=== PATIENT | male | born 1985 ===

== ENCOUNTER 2017-06-21 10:05 | Day surgery (SDC) | payer MEDICAID ==
[2017-06-21] MEDS ORDERED: LR 1,000 ML IV ONE (10:32)
[2017-06-21] MEDS ORDERED: LIDOCAINE 1% 2 ML INJ ID PRN (10:32)
[2017-06-21] MEDS ORDERED: LIDOCAINE 1% 2 ML INJ ONE (10:33)
--- NOTE | 2017-06-21 12:28 | PDGENHP ---
History & Physical Chief Complaint: hx colon cancer History of Present Illness: hx colon cnacer Relevant Physical Exam: nad Cardiorespiratory Assessment: ctab. rrr
--- NOTE | 2017-06-21 13:13 | PDANEPAE ---
ANE History of Present Illness Colonoscope ANE Past Medical History - Cardiovascular History Hx Hypertension: No Hx Arrhythmias: No Hx Chest Pain: No Hx Coronary Artery / Peripheral Vascular Disease: No Hx CHF / Valvular Disease: No Hx Palpitations: No - Pulmonary History Hx COPD: No Hx Asthma/Reactive Airway Disease: No Hx Recent Upper Respiratory Infection: No Hx Oxygen in Use at Home: No Hx Sleep Apnea: No Sleep Apnea Screening Result - Last Documented: Negative - Neurologic History Hx Cerebrovascular Accident: No Hx Seizures: No Hx Dementia: No - Endocrine History Hx Diabetes: No Hypothyroid: No Hyperthyroid: No - Renal History Hx Renal Disorders: No - Liver History Hx Hepatic Disorders: No Hepatic History Comment: ELEV LIVER ENZYMES - Neurological & Psychiatric Hx Hx Neurological and Psychiatric Disorders: No - Cancer History Hx Cancer: Yes Cancer History Comment: COLON CA - Congenital Disorder History Hx Congenital Disorders: No - GI History Hx Gastrointestinal Disorders: No - Other Health History Other Health History: NEG - Chronic Pain History Chronic Pain: No - Surgical History Prior Surgeries: COLON RESECTION. COLOSTOMY & TAKEDOWN. COLONOSCOPIES ANE Review of Systems - Exercise capacity METS (RN): 4 METS ANE Patient History - Allergies Allergies/Adverse Reactions: No Known Allergies Allergy (Unverified 06/20/17 16:41) - Home Medications Home Medications: Herbals/Supplements -Info Only 06/20/17 [Last Taken 06/19/17] - NPO status NPO Since - Liquids (Date): 06/20/17 NPO Since - Liquids (Time): 23:00 NPO Since - Solids (Date): 06/19/17 NPO Since - Solids (Time): 17:00 - Anes Hx Anes Hx: no prior problems - Smoking Hx Smoking Status: Never smoked - Alcohol Use Alcohol Use: Occasionally - Family Anes Hx Family Anes Hx: none Family Hx Anesthesia Complications: NEG ANE Labs/Vital Signs - Vital Signs Blood Pressure: 119/94 Heart Rate: 89 Respiratory Rate: 16 O2 Sat (%): 95 Height: 210.82 cm Weight: 136.078 kg ANE Physical Exam - Airway Neck exam: FROM Mallampati Score: Class 1 Mouth exam: normal dental/mouth exam - Pulmonary Pulmonary: no respiratory distress - Cardiovascular Cardiovascular: regular rate and rhythym - ASA Status ASA Status: II ANE Anesthesia Plan Anesthesia Plan: GA with mask
[2017-06-21] MEDS ORDERED: PROPOFOL/EMULSION 500 MG/50 ML BOTTLE IV ONE (13:28)
[2017-06-21] MEDS ORDERED: MIDAZOLAM 2 MG/2 ML VIAL IVP ONE (13:38)
[2017-06-21] MEDS ORDERED: ONDANSETRON 4 MG/2 ML VIAL IVP PRN (13:38)
[2017-06-21] MEDS ORDERED: fentaNYL 100 MCG/2 ML INJ IVP PRN (13:38)
[2017-06-21] MEDS ORDERED: NALOXONE HCL 0.4 MG/ML INJ IVP PRN (13:38)
--- NOTE | 2017-06-21 13:40 | POSTANESTH ---
Post Anesthetic Evaluation Cardiovascular Status: Normal, Stable Respiratory Status: Normal, Stable Level of Consciousness/Mental Status: Can Participate in Eval Pain Control: Adequate, Prn Tx Ordered Nausea/Vomiting Control: Adequate, Prn Tx Ordered Complications Possibly Related to Anesthesia: None Noted
[2017-06-21 14:20] VITALS: O2SAT 94
--- NOTE | 2017-06-21 14:59 | GPN ---
[f rep st] PROCEDURE NOTE DATE OF PROCEDURE: 06/21/2017 PROCEDURE: Colonoscopy with polypectomy. INDICATION: Personal history of colon cancer, status post resection. Here for surveillance. CONSENT: Informed consent obtained from the patient after explanation of risks , benefits, alternatives. MEDICATIONS GIVEN: Per Anesthesia. ESTIMATED BLOOD LOSS: None. DESCRIPTION OF EXAM: After adequate sedation was achieved, the colonoscope was advanced through the anal orifice under direct vision and as far as the cecum and terminal ilium. Retroflexion was performed in the ascending colon and in the rectum. Good views were obtained throughout. The prep was good. Patient tolerance was good. The ileocecal valve, appendiceal orifice, and terminal ilium were all identified and photographed, as was the retroflexed view in the rectum. FINDINGS: 1. A 1 mm polyp in the proximal ascending colon adjacent to the ileocecal valve was removed with cold biopsy forceps. It was retrieved and placed in jar 1. 2. A 4 mm polyp and a 3 mm polyp were seen in the transverse and descending colon respectively. Both were removed in 1 piece with cold snare polypectomy, retrieved and placed in jar 2. 3. Sigmoid colon anastomosis and previous colostomy scar in side of the colon was noted, and had normal appearing tissue and mucosa. 4. Two 4 mm polyps were removed from the sigmoid colon with a cold snare in 1 piece and retrieved without difficulty. Placed in jar 3. IMPRESSION: 5 small polyps removed from the colon, otherwise healthy-appearing anastomosis in the sigmoid colon from previous colostomy, and a good exam. RECOMMENDATIONS: 1. Repeat colonoscopy in 1 year. 2. Resume regular diet. 3. Resume medications. 4. Await pathology results. /[id number]/MODL MTDD
[2017-06-21 15:08] VITALS: TEMP 98.6
[2017-06-21 15:11] VITALS: BP 122/80; PULSE 66; RESP 16
== END 2017-06-21 14:55 | disposition home or self-care (01) ==
LOC: FSGY 10:05
PROVIDERS: ATTEND Internal Medicine
PROC: 0DBK8ZX Excision of Ascending Colon, Via Natural or Artificial Opening Endoscopic, Diagnostic (ICD-10-PCS; principal; 2017-06-21 11:30)
PROC: 0DBN8ZX Excision of Sigmoid Colon, Via Natural or Artificial Opening Endoscopic, Diagnostic (ICD-10-PCS; principal; 2017-06-21 11:30)
PROC: 0DBM8ZX Excision of Descending Colon, Via Natural or Artificial Opening Endoscopic, Diagnostic (ICD-10-PCS; principal; 2017-06-21 11:30)
PROC: 0DBL8ZX Excision of Transverse Colon, Via Natural or Artificial Opening Endoscopic, Diagnostic (ICD-10-PCS; principal; 2017-06-21 11:30)
DX: Z08 Encounter for follow-up examination after completed treatment for malignant neoplasm (principal); Z85.038 Personal history of other malignant neoplasm of large intestine; D12.2 Benign neoplasm of ascending colon; D12.3 Benign neoplasm of transverse colon; D12.4 Benign neoplasm of descending colon; D12.5 Benign neoplasm of sigmoid colon
CPT/HCPCS: J2704